=== PATIENT | female | born 1945 | race Caucasian/White ===

== ENCOUNTER 2017-11-08 03:45 | Emergency (ER) | payer OTHER ==
[~2017-11-08] VITALS: Ht 162.6 cm; Wt 62.1 kg
[2017-11-08 03:59] VITALS: BP_SYST 113
--- NOTE | 2017-11-08 03:59 | NUR ---
Patient to ER bed 3 to gown for evaluation. Side rails up. Report given to Chrissie SOLIS.
[2017-11-08] MEDS ORDERED: KETOROLAC TROMETHAMINE 30 MG VIAL IM ONE (04:00)
--- NOTE | 2017-11-08 04:00 | NUR ---
Patient brought in BLS for c/o right sided rib and lower back pain status post fall. Patient reports "falling backwards while changing linen on bed three hours ago" no obvious deformity noted to extremities, site is tender on palpation, no skin discoloration noted. No acute distress noted. Will continue to monitor.
--- NOTE | 2017-11-08 04:05 | NUR ---
DARREN Mcgrath at bedside examining patient.
[2017-11-08] MEDS ORDERED: NACL 0.9% 1,000 ML IV ONE (04:45)
--- NOTE | 2017-11-08 04:45 | NUR ---
Patient to CT via [facility]
--- NOTE | 2017-11-08 05:30 | NUR ---
Patient moved to room 7.
[2017-11-08 05:36] LABS: BASOPHILS % (AUTO) 0.2 % (0.0-2.0); EOSINOPHILS # (AUTO) 0.2 K/uL (0.0-0.4); EOSINOPHILS % (AUTO) 1.3 % (0.0-4.0); HEMATOCRIT 39.6 % (36-48); HEMOGLOBIN 13.2 g/dL (12.0-16.0); LYMPHOCYTES # (AUTO) 1.3 K/uL (1.0-5.5); LYMPHOCYTES % (AUTO) 10.5 % (20.5-51.5); MEAN CORPUSCULAR HEMOGLOBIN 31 pg (27-31); MEAN CORPUSCULAR HGB CONC 33 % (32-36); MEAN CORPUSCULAR VOLUME 93 fL (79.0-98.0); MONOCYTES # (AUTO) 0.4 K/uL (0.0-1.0); MONOCYTES % (AUTO) 3.5 % (1.7-9.3); NEUTROPHILS # (AUTO) 10.4 K/uL (1.8-7.7); NEUTROPHILS % (AUTO) 84.5 % (40.0-70.0); PLATELET COUNT (AUTO) 292 K/uL (130-430); RED BLOOD CELL COUNT(AUTO) 4.26 MIL/uL (4.2-6.2); RED CELL DISTRIBUTION WIDTH 12.5 % (9.0-15.0); WHITE BLOOD COUNT (AUTO) 12.3 K/uL (4.8-10.8)
[2017-11-08 05:44] LABS: ANION GAP 10 (5-15); CHLORIDE 98 mmol/L (98-107); CREATININE 1.18 mg/dL (0.55-1.30); GLUCOSE 422 mg/dL (70-99); POTASSIUM 3.9 mmol/L (3.5-5.1); SODIUM SERUM 138 mmol/L (136-145); UREA NITROGEN, BLOOD 21 mg/dL (8-21)
[2017-11-08 05:56] LABS: ALANINE AMINOTRANSFERASE 14 U/L (12-78); ALBUMIN 3.2 g/dL (3.4-4.8); ASPARTATE AMINOTRANSFERASE 12 U/L (10-37); TOTAL BILIRUBIN 0.1 mg/dL (0.0-1.0)
[2017-11-08] MEDS ORDERED: POTASSIUM CHLORIDE 20 MEQ TAB.PRT.SR PO ONE (06:00)
[2017-11-08] MEDS ORDERED: INSULIN REGULAR, HUMAN 10 UNITS/0.1 ML INJ SUBCUT ONE (06:00)
--- NOTE | 2017-11-08 06:30 | NUR ---
Patient resting quietly. No acute distress noted. Vital signs within normal range.
--- NOTE | 2017-11-08 07:07 | NUR ---
Report given to WILL Gonzalez.Care assumed.
[2017-11-08 07:30] VITALS: BP_SYST 146
--- NOTE | 2017-11-08 07:30 | NUR ---
Patient given written and verbal discharge instructions and verbalizes understanding. ER MD discussed with patient the results and treatment provided. Patient in stable condition. ID arm band removed. IV catheter removed intact and dressing applied, no active bleeding. No Rx given. Patient educated on pain management and to follow up with PMD. Pain Scale 3. Dr. Mendez aware, pain medications were given here. Opportunity for questions provided and answered. Medication side effect fact sheet provided.
== END 2017-11-08 07:30 | disposition home or self-care (01) ==
LOC: SED 03:45
DX: S22.31XA Fracture of one rib, right side, initial encounter for closed fracture (principal); E11.65 Type 2 diabetes mellitus with hyperglycemia; M79.7 Fibromyalgia; Z88.5 Allergy status to narcotic agent; W06.XXXA Fall from bed, initial encounter; Y93.89 Activity, other specified; Y92.89 Other specified places as the place of occurrence of the external cause; Y99.8 Other external cause status
CPT/HCPCS: 36415; 70450; 71100; 72100; 80053; 84484; 85025; 93005; 96360; 96372; 99285; J1815; J1885

== ENCOUNTER 2019-07-01 16:07 | Emergency (ER) | payer OTHER ==
[~2019-07-01] VITALS: Ht 154.9 cm; Wt 62.1 kg
[2019-07-01 16:10] VITALS: BP_SYST 140
--- NOTE | 2019-07-01 16:15 | NUR ---
Patient triaged and placed in waiting room. VSS and patient appears in no acute distress at this time. Accompanied by FAMILY, awaiting available bed, and MD notified of need for MSE.
--- NOTE | 2019-07-01 18:11 | NUR ---
Pt AAOx4 ambulated into ED with cane c/o 01/16 mid lower back pain radiating to mid level back pain x 1 week. Pt states she also had the flu which may have induced her back pain. Denies trauma. No deformites noted on spine. Pain increases upon palpation. No other injuries/complaints per pt/noted. Will continue to monitor.
--- NOTE | 2019-07-01 18:13 | NUR ---
BROUGHT BACK TO [facility] BED AND REPORT GIVEN TO KIRK
--- NOTE | 2019-07-01 18:16 | NUR ---
ER Dr. Nelson at bedside examining patient.
--- NOTE | 2019-07-01 18:29 | NUR ---
Pt taken to radiology via gurney in stable condition
[2019-07-01] MEDS ORDERED: traMADol HCL HCL 50 MG TABLET (ULTRAM) PO ONE (18:30)
[2019-07-01 19:45] VITALS: BP_SYST 140
--- NOTE | 2019-07-01 19:45 | NUR ---
Patient given written and verbal discharge instructions and verbalizes understanding. ER MD Dr. Ramos discussed with patient the results and treatment provided. Patient in stable condition. ID arm band removed. Rx of naproxen and tramadol given. Patient educated on pain management and to follow up with PMD. Pain Scale 0/10. Opportunity for questions provided and answered. Medication side effect fact sheet provided.
== END 2019-07-01 19:45 | disposition home or self-care (01) ==
LOC: SED 16:07
DX: M54.5 Low back pain (principal); E11.9 Type 2 diabetes mellitus without complications; E07.9 Disorder of thyroid, unspecified; I10 Essential (primary) hypertension; Z88.6 Allergy status to analgesic agent
CPT/HCPCS: 71045; 72100-TC; 99283